=== PATIENT | male | born 1945 | race Caucasian/White ===

== ENCOUNTER → 2018-06-19 | Outpatient (CLI) | payer MEDICARE, OTHER ==
--- NOTE | 2018-06-20 08:15 | Diagnostic Imaging Report ---
EXAM: Renal Ultrasound INDICATION: \S\CYST OF KIDNEY COMPARISON: Renal ultrasound 06/05/2016 TECHNIQUE: Transverse and longitudinal images of the kidneys and bladder were obtained. FINDINGS: Right Kidney: Size: 11.9 cm, right renal cortex 1.5 cm. Appearance: Normal echogenicity. Collecting system: No hydronephrosis Stones: None Cyst/Mass: None Left Kidney: Size: 13.8 cm, left renal cortex 1.7 cm. Appearance: Normal echogenicity. Collecting system: No hydronephrosis Stones: None Cyst/Mass: Several cystic, anechoic lesions are again seen in the left kidney: * 3.2 x 2.7 x 2.9 cm mostly exophytic lesion in the superior pole (previously measured 2.8 x 2.3 x 2.8 cm). * 3.4 x 3.4 x 4.0 cm mostly exophytic lesion in the mid lateral aspect (previously measured 3.1 x 3.2 x 3.5 cm). * 1.3 x 1.3 x 1.9 cm lesion in the inferomedial aspect (previously measured 1.6 x 1.2 x 1.4 cm). * 1.0 x 1.0 x 1.0 cm cystic, anechoic lesion in the inferomedial aspect (previously not visualized). Bladder: Bilateral ureteral jets are identified. No focal lesions. Prostate: 1.5 x 0.9 x 1.7 cm (estimated volume 1.1 cc). Incidental note is made of a 1.0 cm echogenic focus with posterior acoustic shadowing in the spleen, likely representing a calcified granuloma. IMPRESSION: 1. Normal bilateral renal size and echogenicity. No hydronephrosis or obstruction. 2. Interval increase in size in 3.2 cm simple appearing cyst in the superior pole the left kidney. Slight interval increase in size in 3.4 cm simple appearing cyst in the mid lateral aspect. A 1.9 cm simple appearing cyst in the inferomedial aspect is relatively stable. A new 1.0 cm simple appearing cyst is noted in the inferomedial aspect. Signed by: Dr. Edgar Ruiz M.D. on 06/20/2018 8:11 AM
== END ==
LOC: US 13:43
PROVIDERS: ATTEND Urology
DX: N28.1 Cyst of kidney, acquired (principal)
CPT/HCPCS: 76770

== ENCOUNTER → 2019-07-26 | Outpatient (CLI) | payer MEDICARE, OTHER ==
--- NOTE | 2019-07-26 17:31 | Diagnostic Imaging Report ---
Bone Scan, delayed phase - multiple spot images INDICATION: 74 M with progressively worsening pain in lower back, right hip and shoulders. COMPARISON: Prior bone scan 08/23/2009 REPORT: Approximately 3 hours following intravenous administration of 27 mCi of Tc-99m MDP, multiple spot images of the neck and upper chest, chest an upper abdomen, pelvis and hips and femurs and knees were obtained in the anterior and posterior projections. (The patient is unable to lie supine for more than a few minutes at a time and was unable to complete images of the head and distal lower extremities.) Interval left knee arthroplasty compared to the prior bone scan in 2008. Very subtle increased tracer activity is seen in the same portions of the right ischium as seen on the prior bone scan but with greatly reduced intensity. Tracer activity is no longer increased in the medial aspect of the right ilium. No new foci of increased tracer activity are seen in the area scanned. Degenerative changes are seen in the lower lumbar spine as well as in the shoulders and knees. Otherwise, distribution of tracer activity is unremarkable throughout the areas imaged. No abnormal accumulation of tracer is seen in the soft tissues or urinary tract. IMPRESSION: Based on the patient's prior bone scan, clinical history of not having prostate cancer and today's study, Paget's disease that is now beyond the blastic stage is the most likely diagnosis. No scan evidence of malignant transformation. Paget's disease is not a likely explanation of the patient's shoulder pain or low back pain, but possibly of his right hip pain although osteoarthritis is more likely. No acute osteoblastic processes are present to suggest an etiology of the patient's shoulder or low back pain. Signed by: Dr. Dana Hall M.D. on 07/26/2019 5:27 PM
== END ==
LOC: DX 12:35
PROVIDERS: ATTEND Internal Medicine
DX: M88.9 Osteitis deformans of unspecified bone (principal); M54.5 Low back pain; M25.551 Pain in right hip; M25.512 Pain in left shoulder; M25.511 Pain in right shoulder
CPT/HCPCS: 77080; 78306; A9503

== ENCOUNTER → 2020-08-18 | Outpatient (CLI) | payer MEDICARE, OTHER ==
--- NOTE | 2020-08-18 08:54 | Diagnostic Imaging Report ---
EXAM: BONE MINERAL DENSITY HISTORY: Age-related osteoporosis COMPARISON: Report from bone density evaluation 07/26/2019 DISCUSSION: Evaluation of the left hip and lumbar spine was performed utilizing DEXA Hologic bone densitometer. The study is technically adequate. The patient's fracture risk is compared to an age-matched control. The patient denies prior surgery/fracture of the spine, hips or forearm. Left hip femoral neck bone mineral density: 0.977 g/cm2, T-score is 0.3, Z-score is 1.8. Left hip total bone mineral density: 1.146 g/cm2, T-score is 0.7, Z-score is 1.7. Total left hip bone mineral density is decreased by -0.4% compared to prior exam, which is not statistically significant. Lumbar spine total bone mineral density: 1.541 gm/cm2, T-score is 4.1, Z-score is 5.2. Total lumbar spine bone mineral density is increased by 2.9% compared to prior exam, which is statistically significant Impression: Bone mineralization by WHO Classification is normal, the fracture risk is not increased. Lumbar spine bone mineral density is markedly above expected age range, which may be related to suspected Paget's disease. Signed by: Dr. Jorge Disla M.D. on 08/18/2020 8:50 AM
== END ==
LOC: DX 07:58
PROVIDERS: ATTEND Internal Medicine
DX: M81.0 Age-related osteoporosis without current pathological fracture (principal); M88.9 Osteitis deformans of unspecified bone
CPT/HCPCS: 77080

== ENCOUNTER → 2020-08-22 | Outpatient (CLI) | payer MEDICARE, OTHER ==
--- NOTE | 2020-08-22 18:35 | Diagnostic Imaging Report ---
Bone Scan, delayed phase INDICATION: 75 M with reported Paget's disease since 2009. Previously on risedronate. 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 Active Paget's disease in the right ilium and ischium is documented on the prior bone scan of 08/23/2009. Osteoblastic activity was minimal on the bone scan of 07/26/2019. Recent DEXA scan shows bone mineralization normal for age and increased in the lumbar spine. COMPARISON: Bone scan 07/26/2019 and 08/23/2009 REPORT: Approximately 3 hours following intravenous administration of 27.5 mCi of Tc-99m MDP, delayed spot images of the body were obtained in the anterior and posterior projections. The patient was not able to lie still to tolerate the 22-minute total body sweep but the spot images over vertex of the skull to the toes. Very mildly increased tracer is seen in the right ischium and ilium. Degenerative changes are noted in the upper cervical and lumbar spine as well as in the right knee. A left knee prothesis is present with focal increased tracer at the tip of the femoral component and at the tip of the tibial component. Otherwise, distribution of tracer activity is unremarkable throughout the skeletal system. No abnormal accumulation of tracer is seen in the soft tissues or urinary tract. IMPRESSION: 1. Inactive Paget's disease in the right ischium and ilium. No other sites of Paget's disease, specifically, none in the lumbar spine. 2. Finding at the tips of the components of the left knee prosthesis could indicate loosening if the patient is experiencing persistent pain associated with the prosthesis. Signed by: Dr. Dana Hall M.D. on 08/22/2020 6:32 PM
== END ==
LOC: NM 08:37
PROVIDERS: ATTEND Internal Medicine
DX: M81.0 Age-related osteoporosis without current pathological fracture (principal); M88.9 Osteitis deformans of unspecified bone
CPT/HCPCS: 78306; A9503

== ENCOUNTER 2021-04-28 08:49 | Emergency (ER) | payer MEDICARE, OTHER ==
[~2021-04-28] VITALS: Ht 182.9 cm; Wt 108.9 kg
[2021-04-28] MEDS ORDERED: DEXAMETHASONE PHOS 4MG/ML 5ML MULTIDOSE VIAL INJ ONE (09:30)
[2021-04-28] MEDS ORDERED: AZITHROMYCIN250 MG PO (09:59)
[2021-04-28] MEDS ORDERED: PREDNISONE20 MG PO (09:59)
[2021-04-28] MEDS ORDERED: VENTOLIN HFA18 GM INH (09:59)
[2021-04-28] MEDS ORDERED: DEXAMETHASONE SOD PHOS INJ 4 MG/ML VIAL ONE (10:12)
[2021-04-28 10:23] VITALS: BP 102/59
== END 2021-04-28 10:23 | disposition home or self-care (01) ==
LOC: FSED 08:57
DX: R05 Cough (principal); R53.1 Weakness; J06.9 Acute upper respiratory infection, unspecified; I10 Essential (primary) hypertension
CPT/HCPCS: 71045; 83518; 87400; 99283; J1100

== ENCOUNTER 2025-04-01 16:33 | Emergency (ER) | payer MEDICARE, OTHER ==
[~2025-04-01] VITALS: Ht 182.9 cm; Wt 99.8 kg
[~2025-04-01 16:33] MED LIST: AZITHROMYCIN250 MG PO; PREDNISONE20 MG PO; VENTOLIN HFA18 GM INH
[2025-04-01] MEDS: ACETAMINOPHEN 325 MG TAB PO ONE (18:38)
[2025-04-01] MEDS: TRAMADOL HCL 50 MG TAB PO ONE (18:39)
[2025-04-01 18:40] VITALS: PULSE 84; RESP 16; TEMP 98.6; O2SAT 98
== END 2025-04-01 18:43 | disposition home or self-care (01) ==
LOC: ER 16:43
DX: M79.671 Pain in right foot (principal); V09.29XA Pedestrian injured in traffic accident involving other motor vehicles, initial encounter; Y92.488 Other paved roadways as the place of occurrence of the external cause; I10 Essential (primary) hypertension; Z85.118 Personal history of other malignant neoplasm of bronchus and lung
CPT/HCPCS: 99283